=== PATIENT | male | born 1955 | race Two or more races ===

== ENCOUNTER 2018-02-12 13:30 | Day surgery (SDC) | payer MEDICARE, OTHER ==
[2018-02-12] MEDS ORDERED: LIDOCAINE 2% (SDV) 5 ML INJ (17:36)
[2018-02-12] MEDS ORDERED: PROPOFOL 20 ML (17:36)
[2018-02-12] MEDS ORDERED: FENTAnyl 50 MCG/ML VIAL ×2 (17:37→17:40)
[2018-02-12] MEDS ORDERED: MIDAZOLAM 1 MG/ML 2 ML INJ (17:37)
== END 2018-02-12 18:57 | disposition home or self-care (01) ==
LOC: GIL 13:30
DX: Z12.11 Encounter for screening for malignant neoplasm of colon (principal); D12.5 Benign neoplasm of sigmoid colon; I10 Essential (primary) hypertension
CPT/HCPCS: 45380; 88305